=== PATIENT | female | born 1975 | race Caucasian/White ===

== ENCOUNTER 2021-02-25 12:22 | Outpatient (REF) | payer OTHER, SELFPAY ==
[2021-02-25 12:51] LABS: COVID-19 Test Negative (Negative)
== END 2021-02-25 12:23 | disposition home or self-care (01) ==
LOC: HO.LAB 12:22
PROVIDERS: PCP Physician Assistant; Visit Provider Internal Medicine
DX: Z20.822 Contact with and (suspected) exposure to COVID-19 (principal)
CPT/HCPCS: 36415; 87635; C9803

== ENCOUNTER 2023-03-31 07:27 | Emergency (ER) | payer OTHER, SELFPAY ==
[2023-03-31 07:34] VITALS: BP 137/87; PULSE 92; RESP 18; TEMP 36.1; O2SAT 96; BMI 25.4
[2023-03-31 08:09] LABS: COVID-19 Test Negative (Negative); IDNOW Serial# 9DB6401D
[2023-03-31 08:17] LABS: IDNOW Serial# 58CA691E; Influenza A Negative (Negative); Influenza B2 Negative (Negative)
[2023-03-31 08:49] LABS: MANUAL DIFF FLAG NO
[2023-03-31 08:50] LABS: Basophils Percent Auto 0.1 % (0-2); Eosinophils Percent Auto 0.1 % (0-4); Hematocrit 42.9 % (37.0-47.0); Hemoglobin 14.2 g/dl (12.0-16.0); Imm Gran Abs Auto 0.02 X10*3/uL (0.00-0.03); Imm Gran Pct Auto 0.3 % (0.0-0.4); Lymphocytes Absolute Auto 0.6 X10*3/uL (1.2-4.9); Lymphocytes Percent Auto 9.6 % (20-40); Mean Corpuscular HGB Conc 33.1 g/dl (31.0-35.0); Mean Corpuscular Hemoglobin 27.5 pg (27.0-33.0); Mean Platelet Volume 8.7 fL (9.4-12.3); Monocytes Absolute Auto 0.3 X10*3/uL (0.1-1.2); Monocytes Percent Auto 3.9 % (2-11); Neutrophils Absolute Auto 5.7 x10*3/uL (2.0-8.3); Platelet Count 237 X10*3/uL (160-400); Red Blood Count 5.17 X10*6/uL (4.20-5.50); Red Cell Distribution Width 14.4 % (11.0-16.0); White Blood Count 6.7 X10*3/uL (4.8-10.8)
[2023-03-31 08:53] LABS: Appearance Urine Cloudy; Color Urine Dark Yellow; Glucose Urine UA Negative (Negative); Leukocyte Esterase Urine Moderate (2+) (Negative); Nitrite Urine Negative (Negative); PH 5.5 (5.0-9.0); Specific Gravity - Urine >= 1.030 (1.005-1.025); UMIC TRIGGER UACC YES; Urine Blood Small (1+) (Negative); Urine Ketones 80 mg/dL (Negative); Urine Protein 30 (1+) mg/dL (Neg-Trace)
[2023-03-31 08:58] LABS: Bacteria Urine 4+ (None Seen); UACC Culture Trigger YES; WBC Urine >50 /HPF (0-5)
[2023-03-31 09:06] LABS: UPreg QC Valid YES; Urine Pregnancy INCONCLUSIVE (NEGATIVE)
[2023-03-31 09:19] LABS: Alanine Aminotransferase 12 U/L (0-31); Albumin Level 3.9 g/dL (3.5-5.0); Alkaline Phosphatase 65 U/L (39-117); Anion Gap 13 (12-20); Aspartate Amino Transferase 23 U/L (5-31); Bilirubin Direct 0.2 mg/dL (0.0-0.5); Bilirubin Total 0.5 mg/dL (0.0-1.0); Blood Urea Nitrogen 12 mg/dL (9-16); Calcium 9.2 mg/dL (8.4-10.2); Carbon Dioxide 24 mmol/L (22-29); Chloride 104 mmol/L (96-108); Estimated Glomerular Filt Rate > 60; Glucose Random 92 mg/dL (60-115); Lipase 9 U/L (8-78); Potassium 3.4 mmol/L (3.3-5.1); Sodium 138 mmol/L (135-145); Total Protein 7.3 g/dL (6.5-8.0)
[2023-03-31 09:22] VITALS: BP 133/88; PULSE 82; RESP 19; TEMP 37.3; O2SAT 98
--- NOTE | 2023-03-31 09:46 | ED_ITS ---
HPI - Weakness General Chief complaint: Upper Respiratory Symptoms Stated complaint: cold like symptoms Time Seen by Provider: 03/31/23 09:26 Source: patient Mode of arrival: ambulatory Limitations: no limitations History of Present Illness HPI Narrative: 47 yo female with no sig PMH here with c/o headaches, abdominal pain, diarrhea, sore throat, not feeling well. 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 Has only taken PRN tylenol here and there. MD Complaint: generalized weakness (viral syndrome) Onset (ago): day(s) (2) Duration: constant Location: generalized Migration: none Severity: mild Quality: aching Relieving factors: rest Exacerbating factors: medication Context: recent illness Associated symptoms: fever/chills, headaches, loss of appetite and nausea/vomiting Related Data Previous Rx's Medication Instructions Recorded cefuroxime axetil 250 mg tablet 250 mg PO BID 7 days #14 tabs 03/31/23 ibuprofen 600 mg tablet 600 mg PO Q6H PRN pain #30 tabs 03/31/23 ondansetron 4 mg disintegrating 4 mg PO Q8H PRN nausea and 03/31/23 tablet vomiting #20 tabs Allergies Allergy/AdvReac Type Severity Reaction Status Date / Time No Known Allergies Allergy Verified 03/31/23 07:36 Review of Systems 2 Review of Systems: Constitutional : positive Fever, positive Chills, positive fatigue, positive Malaise ENT/Mouth : positive sore throat, positive runny nose Eyes: No Discharge Cardiovascular : No Chest Pain, No SOB Respiratory : No Cough, No Sputum Gastrointestinal : pos Nausea, No Vomiting, pos Diarrhea, pos abdominal pain Genitourinary : No Dysuria, No Urinary Frequency Musculoskeletal : positive Myalgia Skin : No rash Neuro : pos Headache [facility] Past Medical History Attestation statement: The following information was validated with the patient. Medical History No pertinent past medical history Social History Social History (Updated 03/31/23 @ 10:17 by Donna Garcia DO) Patient Tobacco Use Status: Never used Tobacco Physical Exam 2 Vital Signs: Vital Signs: Last Vital Signs Temp 99.2 F 03/31/23 09:22 Pulse 82 03/31/23 09:22 Resp 19 03/31/23 09:22 BP 133/88 03/31/23 09:22 Pulse Ox 98 03/31/23 09:22 O2 Del Method Room Air 03/31/23 09:22 BMI result Body Mass Index 25.4 Appearance: Alert. Oriented X3. No acute distress. Eyes: Pupils equal, round and reactive to light. ENT: Pharynx erythema and exudates uvula midline Neck: Normal inspection. Neck supple. CVS: Normal heart rate and rhythm. Pulses normal. Respiratory: No respiratory distress. Breath sounds normal. Abdomen: Soft and nontender. Skin: Skin warm and dry. Normal skin color. Normal skin turgor. Extremities: No lower extremity edema. No calf ttp Neuro: Oriented X 3. No motor deficit. No sensory deficit. Medical Decision Making Medical Decision Making [facility] Narrative: 47 yo female not toxic here with viral like illness she has benign abdominal exam has pharyngitis as well as total viral syndrome at this time will need labs, UA, viral panel - supportive medications. she is able to tolerate PO. will DC home on ceftin for UTI. Differential Diagnosis Differential Diagnoses: The differential diagnosis associated with the presentation includes viral syndrome. strep, UTI Admission/Observation Consideration of admission/observation: Escalation of care including admission/observation considered VS stable, labs reassuring able to tolerate PO Lab Data [facility] Lab Attestation statement: I reviewed the patient's lab results. 03/31/23 08:44 03/31/23 08:44 Labs: Lab Results 03/31/23 03/31/23 Range/Units 07:40 08:44 WBC 6.7 (4.8-10.8) X10*3/uL RBC 5.17 (4.20-5.50) X10*6/uL Hgb 14.2 (12.0-16.0) g/dl Hct 42.9 (37.0-47.0) % MCV 83.0 (80.0-98.0) fL MCH 27.5 (27.0-33.0) pg MCHC 33.1 (31.0-35.0) g/dl RDW 14.4 (11.0-16.0) % Plt Count 237 (160-400) X10*3/uL MPV 8.7 L (9.4-12.3) fL Immature Gran % (Auto) 0.3 (0.0-0.4) % Neut % (Auto) 86.0 H (45-73) % Lymph % (Auto) 9.6 L (20-40) % [place] % (Auto) 3.9 (2-11) % Eos % (Auto) 0.1 (0-4) % Baso % (Auto) 0.1 (0-2) % Lymph # (Auto) 0.6 L (1.2-4.9) X10*3/uL [place] # (Auto) 0.3 (0.1-1.2) X10*3/uL Eos # (Auto) 0.0 (0.0-0.4) X10*3/uL Baso # (Auto) 0.0 (0.0-0.2) X10*3/uL Abs Immat Gran (auto) 0.02 (0.00-0.03) X10*3/uL Absolute Neuts (auto) 5.7 (2.0-8.3) x10*3/uL Absolute Nucleated RBC 0.000 (0.0-0.012) X10*3/uL Nucleated RBC % (auto) 0.0 (0.0-0.2) /100WBC Sodium 138 (135-145) mmol/L Potassium 3.4 (3.3-5.1) mmol/L Chloride 104 (96-108) mmol/L Carbon Dioxide 24 (22-29) mmol/L Anion Gap 13 (12-20) BUN 12 (9-16) mg/dL Creatinine 0.69 (0.5-1.4) mg/dL Estim Creat Clear Calc 80.0 Estimated GFR > 60 Random Glucose 92 (60-115) mg/dL Calcium 9.2 (8.4-10.2) mg/dL Total Bilirubin 0.5 (0.0-1.0) mg/dL Direct Bilirubin 0.2 (0.0-0.5) mg/dL AST 23 (5-31) U/L ALT 12 (0-31) U/L Alkaline Phosphatase 65 (39-117) U/L Total Protein 7.3 (6.5-8.0) g/dL Albumin 3.9 (3.5-5.0) g/dL Lipase 9 (8-78) U/L Beta HCG, Quant 3 mIU/mL Urine Color Dark Yellow Urine Appearance Cloudy Urine pH 5.5 (5.0-9.0) Ur Specific [place] >= 1.030 H (1.005-1.025) Urine Protein 30 (1+) H (Neg-Trace) mg/dL Urine Glucose (UA) Negative (Negative) mg/dL Urine Ketones 80 (Negative) mg/dL Urine Blood Small (1+) H (Negative) Urine Nitrite Negative (Negative) Ur Leukocyte Esterase Moderate (2+) H (Negative) Urine RBC 6-10 H (0-2) /HPF Urine WBC >50 H (0-5) /HPF Ur Squamous Epith Cells 11-20 (0-2) /HPF Urine Bacteria 4+ (None Seen) Hyaline Casts 3-5 (0-2) /LPF Urine Test INCONCLUSIVE (NEGATIVE) COVID-19 ([facility]) Negative (Negative) COVID-19 Clin Com See Note Influenza Type A (JAC) Negative (Negative) Influenza Type B (JAC) Negative (Negative) Influenza A & B Note See Note Prescription Management I considered prescription management with: Antibiotic Discharge Plan Discharge Clinical Impression: Viral infection, Acute UTI Pharyngitis Qualifiers: Pharyngitis/tonsillitis etiology: unspecified etiology Qualified Code(s): J02.9 - Acute pharyngitis, unspecified Patient Disposition: Home, Self-Care Instructions: Urinary Tract Infection in Women (ED), Pharyngitis (ED), Viral Syndrome (ED) Additional Instructions: return for worsening pain, inability to eat or drink, chest pain trouble breathing or any other concerns. covid and flu negative but suspect other virus as cause On a cephalosporin?antibiotic, softer bowel movements are to be expected. Call your provider if you move your bowels more than 4 times a day, your bowel movements are almost all liquid, or you get a rash.?? Prescriptions: New cefuroxime axetil 250 mg tablet 250 mg PO BID 7 Days Qty: 14 0RF ibuprofen 600 mg tablet 600 mg PO Q6H PRN (Reason: pain) Qty: 30 0RF ondansetron 4 mg tablet,disintegrating 4 mg PO Q8H PRN (Reason: nausea and vomiting) Qty: 20 0RF Stand Alone Forms: Work/School Release
[2023-03-31 09:55] LABS: HCG Quantitative 3 mIU/mL
[2023-03-31] MEDS: Ondansetron ODT 4 MG TAB.RAPDIS TRANSLINGU (10:13)
[2023-03-31] MEDS: Ibuprofen 600 MG TABLET PO (10:13)
--- NOTE | 2023-03-31 10:16 | PC.NURSE ---
patient a&ox3, labs drawn, swab obtained, pt medicated with po medications per order, pt c/o 6-11/09 abd pain and headache, vitals stable, pt awaiting results of testing, call west within reach, will continue to monitor
[2023-03-31 10:18] LABS: IDNOW Serial# 58CA691E; Strep A Nucleic Acid Negative (Negative)
== END 2023-03-31 10:58 | disposition home or self-care (01) ==
PROVIDERS: Emergency Provider Emergency Medicine; PCP Physician Assistant
DX: B34.9 Viral infection, unspecified (principal); N39.0 Urinary tract infection, site not specified; J02.9 Acute pharyngitis, unspecified; R51.9 Headache, unspecified; R11.2 Nausea with vomiting, unspecified; Z11.52 Encounter for screening for COVID-19; Z20.822 Contact with and (suspected) exposure to COVID-19; Z79.899 Other long term (current) drug therapy
CPT/HCPCS: 36415; 80048; 80076; 81001; 81025; 83690; 84702; 85025; 87086; 87502; 87635; 87651; 99283; 99284